=== PATIENT | female | born 2000 | race Caucasian/White ===

== ENCOUNTER 2023-10-06 15:01 | Emergency (ER) | payer OTHER, SELFPAY ==
[2023-10-06] MEDS ORDERED: Ketorolac Tromethamine 30 MG (1 mL) VIAL ONE (15:44)
[2023-10-06] MEDS ORDERED: Acetaminophen/Codeine 30-300mg Tablet ONE (17:29)
== END 2023-10-06 17:47 | disposition home or self-care (01) ==
LOC: ERS 15:01
DX: S30.0XXA Contusion of lower back and pelvis, initial encounter (principal); S70.02XA Contusion of left hip, initial encounter; W18.30XA Fall on same level, unspecified, initial encounter
CPT/HCPCS: 72100; 72170; 72220; 96374; J1885